=== PATIENT | male | born 1985 ===

== ENCOUNTER 2023-01-18 20:00 | Outpatient (CLI) | payer OTHER, SELFPAY | END 2023-01-18 20:01 | disposition home or self-care (01) | LOC: SLEEP 01-19 05:28 | PROVIDERS: Visit Provider Nurse Practitioner Family | DX: G47.33 Obstructive sleep apnea (adult) (pediatric) (principal) | CPT/HCPCS: 95810 ==

== ENCOUNTER 2023-08-16 19:34 | Emergency (ER) | payer OTHER, SELFPAY ==
[2023-08-16 19:40] VITALS: BP 164/96; PULSE 79; RESP 16; TEMP 36.6; O2SAT 98; BMI 41.6
--- NOTE | 2023-08-16 19:48 | XRR_ITS ---
PROCEDURE INFORMATION: Exam: XR Left Ankle Exam date and time: 08/16/2023 7:55 PM Age: 37 years old Clinical indication: Injury or trauma; Other: Twisted lt ankle; Sprain or strain; Left TECHNIQUE: Imaging protocol: Radiologic exam of the left ankle. Views: 3 or more views. COMPARISON: No relevant prior studies available. FINDINGS: Bones/joints: Normal mineralization and alignment. No evidence of acute fracture or dislocation. Incidental small heel spur. No significant degenerative change. Soft tissues: Mild soft tissue swelling. XR/XR ankle LT min 3V* [id number] IMPRESSION: No evidence of acute fracture or dislocation.
--- NOTE | 2023-08-16 20:17 | W.ED.EXTPRO ---
HPI - Extremity Problem General: Chief complaint: Extremity Injury, Lower Stated complaint: Fall Time Seen by Provider: 08/16/23 19:48 Source: patient Mode of arrival: ambulatory History of Present Illness: 37-year-old male presents emergency room after an inversion injury of his left ankle while working on a roof he has been able to partially weight-bear since then he slipped and fell while he was on the roof but he did not fall off of the roof. He denies any other injury no previous injury to that ankle. MD Complaint: joint pain Onset (ago): minute(s) Pain Consistency: constant Location: left (Ankle) Quality: sharp Relieving factors: nothing Exacerbating factors: nothing Associated symptoms: Deny arthralgias, chest pain, fever(s), myalgias, rash or short of breath Review of Systems Const: Denies: fever(s) Card: Denies: chest pain Musc: Reports: joint pain Skin/Breast: Denies: rash Physical Exam Narrative: EXAM NARRATIVE: Examination of the left ankle moderate swelling of the lateral portion dorsalis pedis posterior tibialis pulses easily palpable sensation normal dorsal and plantarflexion 5 of 5 no obvious deformity Course Vital Signs: Vital signs: Vital Signs Temperature 97.9 F 08/16/23 19:40 Pulse Rate 79 08/16/23 19:40 Respiratory Rate 16 08/16/23 19:40 Blood Pressure 164/96 08/16/23 19:40 Pulse Oximetry 98 08/16/23 19:40 Oxygen Delivery Me thod Room Air 08/16/23 19:40 MDM - Extremity (Nontraumatic) Medical Decision Making X-ray left ankle no acute fractures. Right rest ice elevate wraps to the leg nonweightbearing for the next couple of days and advance as tolerated if still not able to bear weight after the 3 to 5 days follow-up with primary care for further evaluation including possible repeat imaging or referral to podiatry or orthopedics. Medical Records I reviewed the patient's medical records. Lab Data I reviewed the patient's lab results. XR interpretation done by ED provider, pending radiology final review Discharge Plan Discharge Patient Disposition: Home Clinical Impression: Ankle sprain and strain Condition: Stable Prescriptions: New diclofenac sodium 75 mg tablet,delayed release (DR/EC) 75 mg PO Q12H PRN (Reason: pain) Qty: 20 0RF Discharge Orders: Discharge ED (Routine); Ordered 08/16/23 Ordered By: Timmy Valenzuela Discharge Diet: Usual diet Discharge Activity: Increase activity as tolerated Patient Instructions: Ankle Sprain (ED), Opioid Safety, Pain Management Activity Restrictions/Additional Instructions: Thank you for choosing [facility] for your healthcare needs today. Please realize this is an emergency room and that we are providing you with a medical screening exam and this may not be complete and all inclusive of all the testing and or work up that you may need to determine your ailment or severity of your illness. It is very important that you follow up as instructed or that you return to the Emergency Department should you have concerns or if your condition changes or worsens in any way. You were seen today after a ankle injury. X-rays did not show any acute fracture. Recommend nonweightbearing for the next 24 to 48 hours then advance weightbearing as tolerated. If you are unable to bear weight after 3 to 4 days recheck with your primary care doctor. You can use ice elevation Kieran wrap's or the diclofenac as needed for discomfort. Stand Alone Forms: Work/School Release Coding Level of Care Code ED Software Lead for Meño Hdez
[2023-08-16] MEDS: ketorolac 60 mg/2 mL INJ IM (20:34)
[2023-08-16 21:16] VITALS: BP 143/92; PULSE 81; O2SAT 97
== END 2023-08-16 21:16 | disposition home or self-care (01) ==
PROVIDERS: Emergency Provider Family Medicine
DX: S93.402A Sprain of unspecified ligament of left ankle, initial encounter (principal); S96.912A Strain of unspecified muscle and tendon at ankle and foot level, left foot, initial encounter; W01.0XXA Fall on same level from slipping, tripping and stumbling without subsequent striking against object, initial encounter
CPT/HCPCS: 73610; 96372; 99284; E0114; J1885

== ENCOUNTER 2024-04-17 06:00 | Outpatient (RCR) | payer OTHER, SELFPAY | END 2024-05-04 23:59 | disposition home or self-care (01) | LOC: TPT 06:00 | PROVIDERS: Visit Provider Nurse Practitioner Family | DX: M72.2 Plantar fascial fibromatosis (principal) | CPT/HCPCS: 97110; 97140; 97162 ==

== ENCOUNTER 2024-05-05 06:00 | Outpatient (RCR) | payer OTHER, SELFPAY | END 2024-06-01 23:59 | disposition home or self-care (01) | LOC: TPT 06:00 | PROVIDERS: Visit Provider Nurse Practitioner Family | DX: M72.2 Plantar fascial fibromatosis (principal) | CPT/HCPCS: 97110; 97140 ==